=== PATIENT | male | born 1965 | race Caucasian/White ===

== ENCOUNTER → 2024-09-30 | Emergency (ER) | payer MEDICAID, OTHER ==
[~2024-09-30] VITALS: Ht 188 cm; Wt 108.9 kg
[~2024-09-30] MED LIST: ASPI-1420 PO; CEPH-570 PO; DOXY100C2 PO; LOSA100T31 PO; MECL-159 PO; NIFE60TA2 PO
[2024-09-30 10:48] VITALS: BP 164/102; TEMP 98; O2SAT 96
== END | disposition home or self-care (01) ==
LOC: ER 10:35
DX: L72.3 Sebaceous cyst (principal); I10 Essential (primary) hypertension; Z79.82 Long term (current) use of aspirin; Z79.899 Other long term (current) drug therapy